=== PATIENT | female | born 1990 | race Caucasian/White ===

== ENCOUNTER 2019-01-29 07:58 | Emergency (ER) | payer OTHER ==
[2019-01-29] MEDS ORDERED: Sodium Chloride 0.9% 10 ML Syringe FLUSH PRN (08:27)
[2019-01-29] MEDS ORDERED: Prochlorperazine 10 MG/2 ML SDV IVPUSH ONE (08:28)
[2019-01-29] MEDS ORDERED: diphenhydrAMINE 50 MG Cap PO ONE (08:28)
[2019-01-29] MEDS ORDERED: Sodium Chloride 0.9% 1,000 ML IV ONE (08:28)
[2019-01-29] MEDS ORDERED: Ketorolac 30 MG/ML SDV IVPUSH ONE (08:28)
--- NOTE | 2019-01-29 08:46 | EDM.PDOC ---
ED HPI GENERAL MEDICAL PROBLEM - General Chief Complaint: Headache Stated Complaint: MIGRAINE AND VOMITING Time Seen by Provider: 01/29/19 08:17 Source of Information: Reports: Patient History Limitations: Reports: No Limitations - History of Present Illness INITIAL COMMENTS - FREE TEXT/NARRATIVE: The patient presents with a headache. This has been going on for about a week. She has nausea and vomiting. She has a history of migraines but has not had a headache this bad in awhile. Light bothers her eyes and noise makes things worse. She has no numbness or weakness. She has no chest pain or shortness of breath. Onset: Gradual Duration: Week(s): (1) Location: Reports: Head Quality: Reports: Sharp Severity: Severe Improves with: Reports: None Worsens with: Reports: None Associated Symptoms: Reports: Headaches, Nausea/Vomiting. Denies: Chest Pain, Cough, Fever/Chills, Shortness of Breath Headache Pain Score (Numeric/FACES): 7 - Related Data Allergies Allergy/AdvReac Type Severity Reaction Status Date / Time Penicillins Allergy Rash Verified 01/29/19 08:11 Home Meds: Home Meds ALPRAZolam [Alprazolam] 0.5 mg PO ASDIRECTED PRN 01/29/19 [History] Multivitamin [Multi-Vitamin Daily] 1 tab PO DAILY 01/29/19 [History] Past Medical History Musculoskeletal History: Reports: Fracture Neurological History: Reports: Migraines Hematologic History: Reports: Anemia - Infectious Disease History Infectious Disease History: Reports: Chicken Pox - Past Surgical History HEENT Surgical History: Reports: Tonsillectomy Social & Family History - Tobacco Use Smoking Status *Q: Never Smoker Second Hand Smoke Exposure: No - Caffeine Use Caffeine Use: Reports: Coffee - Recreational Drug Use Recreational Drug Use: No ED ROS GENERAL - Review of Systems Review Of Systems: See Below Constitutional: Reports: No Symptoms HEENT: Reports: No Symptoms Respiratory: Reports: No Symptoms Cardiovascular: Reports: No Symptoms Endocrine: Reports: No Symptoms GI/Abdominal: Reports: No Symptoms : Reports: No Symptoms Musculoskeletal: Reports: No Symptoms - Physical Exam Exam: See Below Exam Limited By: No Limitations General Appearance: Alert, No Apparent Distress Ears: Normal External Exam Nose: Normal Inspection Head Exam: Atraumatic, Normocephalic Neck: Normal Inspection Respiratory/Chest: No Respiratory Distress, Lungs Clear, Normal Breath Sounds Cardiovascular: Regular Rate, Rhythm, No Edema, No Murmur GI/Abdominal: Soft, Non-Tender, No Organomegaly, No Mass Neuro Exam (Abbreviated): Alert, Oriented, No Motor/Sensory Deficits Course - Vital Signs Last Recorded V/S: Last Vital Signs Temp 97.8 F 01/29/19 08:10 Pulse 80 01/29/19 09:30 Resp 16 01/29/19 09:30 BP 98/75 01/29/19 09:30 Pulse Ox 98 01/29/19 09:30 - Orders/Labs/Meds Orders: Active Orders 24 hr Category Date Time Status Peripheral IV Care [RC] . DIRECTED Care 01/29/19 08:27 Active Sodium Chloride 0.9% [Saline Flush] Med 01/29/19 08:27 Active 10 ml FLUSH ASDIRECTED PRN Peripheral IV Insertion Adult [OM.PC] Routine Oth 01/29/19 08:27 Ordered Medication Orders Sodium Chloride (Saline Flush) 10 ml FLUSH ASDIRECTED PRN PRN Reason: Keep Vein Open Last Admin: 01/29/19 08:40 Dose: 10 ml Meds: Medications Generic Name Dose Route Start Last Admin Trade Name Freq PRN Reason Stop Dose Admin Sodium Chloride 10 ml 01/29/19 08:27 01/29/19 08:40 Saline Flush FLUSH 10 ml ASDIRECTED PRN Administration Keep Vein Open Discontinued Medications Generic Name Dose Route Start Last Admin Trade Name Freq PRN Reason Stop Dose Admin Diphenhydramine HCl 50 mg 01/29/19 08:28 01/29/19 09:04 Benadryl PO 01/29/19 08:29 Not Given ONETIME ONE Diphenhydramine HCl 50 mg 01/29/19 09:01 01/29/19 09:04 Benadryl IVPUSH 01/29/19 09:02 50 mg ONETIME ONE Administration Sodium Chloride 1,000 mls @ 1,000 mls/hr 01/29/19 08:28 01/29/19 08:43 Normal Saline IV 01/29/19 09:27 1,000 mls/hr ONETIME ONE Administration Ketorolac Tromethamine 30 mg 01/29/19 08:28 01/29/19 08:45 Toradol IVPUSH 01/29/19 08:29 30 mg ONETIME ONE Administration Prochlorperazine Edisylate 10 mg 01/29/19 08:28 01/29/19 08:41 Compazine IVPUSH 01/29/19 08:29 10 mg ONETIME ONE Administration - Re-Assessments/Exams Free Text/Narrative Re-Assessment/Exam: 01/29/19 08:45 I ordered an IV NS 1L bolus, compazine 10mg IV, toradol 30mg IV and benadryl 50mg IV. 01/29/19 09:44 She feels much better. I will discharge her home. Departure - Departure Time of Disposition: 09:45 Disposition: Home, Self-Care 01 Condition: Good Clinical Impression: Migraine - Discharge Information *PRESCRIPTION DRUG MONITORING PROGRAM REVIEWED*: Not Applicable *COPY OF PRESCRIPTION DRUG MONITORING REPORT IN PATIENT NIKI: Not Applicable Referrals: Dena Coker PA-C [Primary Care Provider] - Forms: ED Department Discharge Additional Instructions: Go home and rest. Please return if you are worse. - My Orders Last 24 Hours: My Active Orders 01/29/19 08:27 Peripheral IV Care [RC] . DIRECTED Sodium Chloride 0.9% [Saline Flush] 10 ml FLUSH ASDIRECTED PRN Peripheral IV Insertion Adult [OM.PC] Routine - Assessment/Plan Last 24 Hours: My Active Orders 01/29/19 08:27 Peripheral IV Care [RC] . DIRECTED Sodium Chloride 0.9% [Saline Flush] 10 ml FLUSH ASDIRECTED PRN Peripheral IV Insertion Adult [OM.PC] Routine
[2019-01-29] MEDS ORDERED: diphenhydrAMINE 50 MG/ML SDV IVPUSH ONE (09:01)
== END 2019-01-29 09:55 | disposition home or self-care (01) ==
LOC: JD.ED 07:58
DX: G43.909 Migraine, unspecified, not intractable, without status migrainosus (principal); Z98.890 Other specified postprocedural states; Z88.0 Allergy status to penicillin
CPT/HCPCS: 96361; 96374; 96375; 99283; J0780; J1200; J1885; J7040; 99284

== ENCOUNTER 2022-11-01 07:18 | Emergency (ER) | payer BC, OTHER ==
[2022-11-01] MEDS ORDERED: Sodium Chloride 0.9% 10 ML Syringe FLUSH PRN (07:52)
[2022-11-01] MEDS ORDERED: Ondansetron 4 MG/2 ML SDV IVPUSH ONE (07:52)
[2022-11-01] MEDS ORDERED: Sodium Chloride 0.9% 1,000 ML IV SCH (08:00)
== END 2022-11-01 10:43 | disposition home or self-care (01) ==
LOC: JD.ED 07:18
DX: G47.00 Insomnia, unspecified (principal); R11.0 Nausea; R19.7 Diarrhea, unspecified; Z88.0 Allergy status to penicillin
CPT/HCPCS: 36415; 83690; 83735; 84484; 86140; 86308; 93005; 96361; 96374; 99284; J2405; J3490; J7030; 93010